=== PATIENT | female | born 1950 | race Caucasian/White ===

== ENCOUNTER 2019-09-24 16:10 | Emergency (ER) | payer MEDICARE, BC ==
--- NOTE | 2019-09-24 16:29 | EDM.PDOC ---
ED HPI GENERAL MEDICAL PROBLEM - General Stated Complaint: DIZZY L ARM PAIN Time Seen by Provider: 09/24/19 16:20 History Limitations: Reports: No Limitations - History of Present Illness INITIAL COMMENTS - FREE TEXT/NARRATIVE: states she woke this am and noted numbness and tingling in the left arm , went to get her hair done , thee noted numbness and tingling got worse with dizziness / lightheadedness . Drove herself home , at home rest but numbness and tingling would not resolve Got worse so she decided to come to the ER states she sleeps on her right side normally denies any trauma Works as rn psychiatric in [employer] Worked yesterday but had to sit at computer and do some classes, sat doing classes for about 2 hrs this may have triggered the pain in the neck later she has neuropathy of the feet: takes neurontin and extra strength tylenol ( ( 4800 daily for the past 9 month s) Duration: Getting Worse Location: Reports: Upper Extremity, Left Quality: Reports: Ache, Burning, Stabbing Severity: Moderate Improves with: Reports: None Worsens with: Reports: None Context: Reports: Activity Associated Symptoms: Reports: Malaise - Related Data Allergies Allergy/AdvReac Type Severity Reaction Status Date / Time No Known Allergies Allergy Verified 09/24/19 17:35 Home Meds: Home Meds Aspirin [Adult Low Dose Aspirin EC] 1 tab PO DAILY 09/24/19 [History] Budesonide/Formoterol [Symbicort 160-4.5 MCG] 1 puff INH BID 09/24/19 [History] Diclofenac Sodium 1 gm TP BID #100 gel..gram. 09/24/19 [Rx] Furosemide [Lasix] 10 mg PO DAILY 09/24/19 [History] Gabapentin [Neurontin] 1,200 mg PO BEDTIME 09/24/19 [History] Gabapentin [Neurontin] 600 mg PO BID 09/24/19 [History] Lisinopril/Hydrochlorothiazide [Lisinopril-Hctz 20-25 mg Tab] 1 tab PO DAILY [History] Montelukast [Singulair] 10 mg PO BEDTIME 09/24/19 [History] ED ROS GENERAL - Review of Systems Review Of Systems: See Below Constitutional: Reports: Malaise, Weakness HEENT: Reports: No Symptoms Respiratory: Reports: No Symptoms Cardiovascular: Reports: No Symptoms Endocrine: Reports: Fatigue GI/Abdominal: Reports: No Symptoms : Reports: No Symptoms Musculoskeletal: Reports: Neck Pain (midline worse on the left side ), Shoulder Pain (left) Skin: Reports: No Symptoms Neurological: Reports: Numbness, Paresthesia, Tingling, Weakness. Denies: Tremors, Trouble Speaking, Change in Speech, Gait Disturbance Psychiatric: Reports: No Symptoms Hematologic/Lymphatic: Reports: No Symptoms Immunologic: Reports: No Symptoms ED EXAM, NEURO - Physical Exam Exam: See Below Exam Limited By: No Limitations General Appearance: Alert, WD/WN, No Apparent Distress Eye Exam: Bilateral Eye: EOMI Ears: Normal External Exam Nose: Normal Inspection Throat/Mouth: Normal Inspection, Normal Oropharynx Head Exam: Atraumatic, Normocephalic Neck: Supple, Limited Range of Motion, Tender Lateral (on the left side wtih gentle palpation). No: Lymphadenopathy (R), Lymphadenopathy (L) Respiratory/Chest: Lungs Clear, Normal Breath Sounds Cardiovascular: Regular Rate, Rhythm GI/Abdominal: Soft, Non-Tender Neurological: Alert, Normal Mood/Affect DTR: 2+: Bicep (R), Bicep (L), Tricep (R), Tricep (L), Patella (R), Patella (L) Back Exam: Normal Inspection, Full Range of Motion Extremities: Normal Inspection, Normal Range of Motion, Non-Tender Psychiatric: Normal Affect, Normal Mood Skin Exam: Warm. No: No Rash *Q Meaningful Use (ADM) - VTE *Q VTE Mechanical Contraindications *Q: Bilat Sensory Neuropathy VTE Pharmacological Contraindications *Q: Not Candidate LT Anticoag VTE Anticoagulation Contraindications: Med/TX Not Indicated/Need Course - Vital Signs Last Recorded V/S: Last Vital Signs Temp 36.4 C 09/24/19 16:15 Pulse 96 09/24/19 16:15 Resp 21 H 09/24/19 16:15 BP 165/88 H 09/24/19 16:15 Pulse Ox 100 09/24/19 16:15 - Orders/Labs/Meds Orders: Active Orders 24 hr Category Date Time Status EKG Documentation Completion [RC] ASDIRECTED Care 09/25/19 15:44 Active Labs: Laboratory Tests 09/24/19 09/24/19 09/24/19 Range/Units 16:42 16:42 16:42 WBC 9.2 (4.5-12.0) X10-3/uL RBC 4.75 (3.23-5.20) x10(6)uL Hgb 14.2 (11.5-15.5) g/dL Hct 42.7 (30.0-51.3) % MCV 89.8 (80-96) fL MCH 30.0 (27.7-33.6) pg MCHC 33.3 (32.2-35.4) g/dL RDW 16.0 H (11.5-15.5) % Plt Count 236 (125-369) X10(3)uL MPV 8.8 (7.4-10.4) fL Add Manual Diff Yes Neutrophils % (Manual) 61 (46-82) % Lymphocytes % (Manual) 34 (13-37) % Monocytes % (Manual) 4 (4-12) % Eosinophils % (Manual) 1 (0-5) % Anisocytosis Few PT 9.6 (8.7-11.1) INR 0.99 (0.89-1.13) Sodium 138 (135-145) mmol/L Potassium 4.8 (3.5-5.3) mmol/L Chloride 98 L (100-110) mmol/L Carbon Dioxide 30 (21-32) mmol/L BUN 32 H (7-18) mg/dL Creatinine 1.1 H (0.55-1.02) mg/dL Est Cr Clr Drug Dosing TNP Estimated GFR (MDRD) 50 L (>60) BUN/Creatinine Ratio 29.1 H (9-20) Glucose 150 H (80-116) mg/dL Calcium 10.6 H (8.6-10.2) mg/dL Troponin I (4.0-60.3) pg/mL Urine Color (YELLOW) Urine Appearance (CLEAR) Urine pH (5.0-6.5) Ur Specific Bradford (1.010-1.025) Urine Protein (NEGATIVE) mg/dL Urine Glucose (UA) (NORMAL) mg/dL Urine Ketones (NEGATIVE) mg/dL Urine Occult Blood (NEGATIVE) Urine Nitrite (NEGATIVE) Urine Bilirubin (NEGATIVE) Urine Urobilinogen (NEGATIVE) mg/dL Ur Leukocyte Esterase (NEGATIVE) Urine RBC (0-5) Urine WBC (0-5) Ur Squamous Epith Cells (NS,R,O) Urine Bacteria (NS) 09/24/19 09/24/19 Range/Units 16:42 17:39 WBC (4.5-12.0) X10-3/uL RBC (3.23-5.20) x10(6)uL Hgb (11.5-15.5) g/dL Hct (30.0-51.3) % MCV (80-96) fL MCH (27.7-33.6) pg MCHC (32.2-35.4) g/dL RDW (11.5-15.5) % Plt Count (125-369) X10(3)uL MPV (7.4-10.4) fL Add Manual Diff Neutrophils % (Manual) (46-82) % Lymphocytes % (Manual) (13-37) % Monocytes % (Manual) (4-12) % Eosinophils % (Manual) (0-5) % Anisocytosis PT (8.7-11.1) INR (0.89-1.13) Sodium (135-145) mmol/L Potassium (3.5-5.3) mmol/L Chloride (100-110) mmol/L Carbon Dioxide (21-32) mmol/L BUN (7-18) mg/dL Creatinine (0.55-1.02) mg/dL Est Cr Clr Drug Dosing Estimated GFR (MDRD) (>60) BUN/Creatinine Ratio (9-20) Glucose (80-116) mg/dL Calcium (8.6-10.2) mg/dL Troponin I 9.1 (4.0-60.3) pg/mL Urine Color Yellow (YELLOW) Urine Appearance Clear (CLEAR) Urine pH 7.0 H (5.0-6.5) Ur Specific Bradford 1.005 L (1.010-1.025) Urine Protein 30 H (NEGATIVE) mg/dL Urine Glucose (UA) Normal (NORMAL) mg/dL Urine Ketones Negative (NEGATIVE) mg/dL Urine Occult Blood Negative (NEGATIVE) Urine Nitrite Negative (NEGATIVE) Urine Bilirubin Negative (NEGATIVE) Urine Urobilinogen Normal (NEGATIVE) mg/dL Ur Leukocyte Esterase Negative (NEGATIVE) Urine RBC 0-5 (0-5) Urine WBC 0-5 (0-5) Ur Squamous Epith Cells Few H (NS,R,O) Urine Bacteria Few H (NS) Departure - Departure Time of Disposition: 18:20 Disposition: Home, Self-Care 01 Condition: Fair Clinical Impression: Cervical spine arthritis with nerve pain, Cervical neuropathic pain - Discharge Information *PRESCRIPTION DRUG MONITORING PROGRAM REVIEWED*: Not Applicable *COPY OF PRESCRIPTION DRUG MONITORING REPORT IN PATIENT AVA: Not Applicable Prescriptions: Diclofenac Sodium 1 gm TP BID #100 gel..gram. Instructions: Neuropathic Pain, Cervical Radiculopathy, [id number] Referrals: PCP,Not In Area [Primary Care Provider] - Forms: ED Department Discharge Additional Instructions: Make appt to see your PCP to adjust your medications You need to be seen for further evaluation of your neck : may need joint injections You will need to have MRI done to assess for possible infarction in the left side of the brain Adjust use of tylenol as this can affect your liver function Sepsis Event Note - Focused Exam Date Exam was Performed: 09/26/19 Time Exam was Performed: 07:04 - My Orders Last 24 Hours: My Active Orders 09/25/19 15:44 EKG Documentation Completion [RC] ASDIRECTED - Assessment/Plan Last 24 Hours: My Active Orders 09/25/19 15:44 EKG Documentation Completion [RC] ASDIRECTED
--- NOTE | 2019-09-24 17:43 | CT ---
INDICATION: Numbness in left arm. CT HEAD WITHOUT CONTRAST: Spiral 3.75 mm axial sections were obtained through the brain without contrast with sagittal and coronal reconstructions 09/24/2019 - no comparisons. Total exam DLP was 1322.30 mGy-cm. The paranasal sinuses and mastoid air cells were well aerated. The odontoid appeared to be grossly intact. No cranial abnormality was demonstrated. There is a calcification noted in the left vertebral artery. No shift of midline structures or ventricular abnormalities were identified. There is a focal rounded area of decreased density in the right basal ganglia compatible with a lacunar infarct. No other abnormal areas of density were identified - no bleeding site or hematoma or findings to strongly suggest an acute thrombotic CVA could be identified. IMPRESSION: 1. Lacunar infarct suggested at the basal ganglia on the right. 2. No definite acute intracranial abnormality identified. 3. Calcification is seen at the left vertebral artery. Report was called to Dr. Green at 1728 hours. [facility]
--- NOTE | 2019-09-25 08:36 | CT ---
INDICATION: Numbness and tingling in the left upper extremity. CT CERVICAL SPINE: Spiral 2.5 mm axial sections were obtained through the cervical spine with sagittal and coronal reconstructions 09/24/2019 - no comparisons. Total exam DLP was 377.03 mGy-cm. There are some mild hypertrophic degenerative changes at the odonto-atlantian joint with the joint space appearing to be fairly well maintained. There is slight reversal of the normal cervical lordosis centered at the C3-4 level. Decreased disk space is mild at C3-4, possibly at C4-5 to a minimal extent, and also to a mild degree at C5-6 and C6-7. Hypertrophic changes are noted at C4-5 posteriorly, anterior and posteriorly at C5-6, and mostly anteriorly at C6-7. The neural foramina appear to be fairly patent. There are some mild hypertrophic changes at the uncinate joint on the right at C3-4, mostly on the left at C4-5, and on the right at C5-6. Vertebral body heights were well maintained. Bone density appeared normal. Prevertebral space appeared normal. The lungs included on the study showed evidence of emphysematous changes. Disk herniation is not identified. If symptoms persist - if herniated nucleus pulposus is suspected clinically, MRI is recommended for further evaluation. IMPRESSION: Degenerative changes and disk disease as noted above. Report was called to Dr. Green at 1728 hours. [facility]
== END 2019-09-24 18:23 | disposition home or self-care (01) ==
LOC: FB.ED 16:10
DX: M46.92 Unspecified inflammatory spondylopathy, cervical region (principal); M79.2 Neuralgia and neuritis, unspecified; Z79.82 Long term (current) use of aspirin
CPT/HCPCS: 36415; 70450; 72125; 80048; 81001; 84484; 85025; 85610; 93005; 99284-25